=== PATIENT | male | born 1980 | race Hispanic/Latino ===

== ENCOUNTER 2021-01-04 14:37 | Outpatient (CLI) | payer BC | END 2021-01-04 14:38 | disposition home or self-care (01) | LOC: BURRAD 14:37 | PROVIDERS: ATTEND Family Medicine | DX: R05 Cough (principal) | CPT/HCPCS: 71046 ==

== ENCOUNTER 2021-11-13 13:45 | Outpatient (CLI) | payer BC | END 2021-11-13 13:46 | disposition home or self-care (01) | LOC: BURRAD 13:45 | PROVIDERS: ATTEND Family Medicine | DX: U07.1 COVID-19 (principal); R91.8 Other nonspecific abnormal finding of lung field | CPT/HCPCS: 71046 ==